=== PATIENT | male | born 1950 | race American Indian/Alaskan Native ===

== ENCOUNTER 2016-10-24 17:48 | Inpatient (IN) | payer SELFPAY ==
[2016-10-24] MEDS ORDERED: XOPENEX IH ONE ×2 (18:27→18:35)
[2016-10-24 20:04] LABS: Basophils % (Auto) 0.5 % (0.0-1.8); Eosinophils % (Auto) 0.1 % (0.0-4.3); Hemoglobin 14.2 gm/dl (11.8-15.2); Mean Corpuscular HGB Conc 32 % (32-34); Mean Corpuscular Hemoglobin 30 pg (28-32); Mean Corpuscular Volume 94 fl (84-94); Platelet Count 222 K/mm3 (140-440); Red Blood Count 4.69 M/mm3 (3.65-5.03); Red Cell Distribution Width 14.4 % (13.2-15.2); White Blood Count 7.1 K/mm3 (4.5-11.0)
[2016-10-24 20:33] LABS: Anion Gap 22 mmol/L; Blood Urea Nitrogen 18 mg/dL (9-20); Calcium 9.3 mg/dL (8.4-10.2); Carbon Dioxide 22 mmol/L (22-30); Chloride 92.8 mmol/L (98-107); Potassium 3.7 mmol/L (3.6-5.0); Sodium 133 mmol/L (137-145)
[2016-10-24 20:42] LABS: Glucose 617 mg/dL (75-100)
[2016-10-24] MEDS ORDERED: NACL 0.9% 1000 ML 1,000 ML IV ONE ×2 (21:06→23:45)
[2016-10-24] MEDS ORDERED: MAGNESIUM SULFATE 2GM/50ML 2 GM/50 ML BAG IV ONE (21:06)
[2016-10-24] MEDS ORDERED: PROVENTIL IH ONE (21:07)
[2016-10-24] MEDS ORDERED: D50W (25GM) IV PRN (23:48)
[2016-10-25] MEDS ORDERED: PROAIR IH PRN (00:15)
[2016-10-25] MEDS ORDERED: NORCO 5/325 PO PRN (00:15)
--- NOTE | 2016-10-25 00:18 | History and Physical Report ---
History of Present Illness Date of examination: 10/25/16 Chief complaint: Shortness of breath History of present illness: 65-year-old -[place] male with past medical history significant for diabetes mellitus type 2, asthma, hyperlipidemia presented to the emergency department complaining of shortness of breath for the last 4-5 days has also associated cough. Patient is asthmatic and has been admitted recently to the hospital. He ran out of his albuterol. Patient has been taking glipizide and metformin for his diabetes. Patient denied fever, chills but admitted for pleuritic chest pain. REVIEW OF SYSTEMS: GENERAL: no weight change, no fatigue, no fever HEAD: no head ache EYES: no blurry vision, no acute visual loss EARS: no hearing loss, no discharge, no earache NOSE: no stuffiness, no sneezing, no discharge MOUTH, THROAT AND NECK: no bleeding gums, no sore throat, no swollen neck CARDIAC: no palpitations, no dyspnea on exertion, no orthopnea, no PND, no edema , no chest pain RESPIRATORY: + shortness of breath, + wheeze, + cough, no sputum, no hemoptysis , no asthma GI: no decreased appetite, no nausea, no vomiting, no dysphagia, no diarrhea, no constipation, no abdominal pain URINARY: no change in frequency, no urgency, no polyuria, no hematuria, no incontinence MUSCULOSKELETAL: no muscle weakness, no pain, no joint stiffness NEUROLOGIC: no loss of sensation/numbness, no tingling, no tremors, no weakness/ paralysis HEMATOLOGIC: no anemia, no easy bruising SKIN: no rashes ENDOCRINE: no heat/cold intolerance, no polyuria, no polydipsia, no thyroid problems, no diabetes PSYCHIATRIC: no anxiety, no depression, no suicidal ideations Past History Past Medical History: diabetes, hyperlipidemia, other (astma) Past Surgical History: No surgical history Social history: full code. denies: smoking, alcohol abuse, prescription drug abuse, IV drug use Family history: other (astma mother) Medications and Allergies Allergies Allergy/AdvReac Type Severity Reaction Status Date / Time aspirin AdvReac Swelling Verified 11/27/15 12:56 Home Medications Medication Instructions Recorded Confirmed Last Taken Type Lisinopril [Zestril TAB] 10 mg PO DAILY 11/27/15 10/25/16 Unknown History Budesoni/Formoterol 80-4.5(Nf) 1 gm INHALATION BID #1 inha 01/06/16 10/25/16 Unknown Rx [Symbicort 80-4.5 (Nf)] Albuterol Sulfate [Albuterol 0.63% 0.63 mg IH TID PRN #1 box 01/25/16 10/25/16 Unknown Rx NEBS] Fluticasone/Salmeterol [Advair 1 each IH BID #1 blst.w.dev 01/25/16 10/25/16 Unknown Rx Diskus 250-50 mcg] glipiZIDE XL [Glucotrol Xl] 10 mg PO QDDIAB #30 tablet 01/25/16 10/25/16 Unknown Rx metFORMIN [Glucophage] 500 mg PO BID #120 tablet 01/25/16 10/25/16 Unknown Rx ALBUTEROL Inhaler [ProAir HFA 2 puff INHALATION Q4H PRN #1 inha 04/21/16 Unknown Rx Inhaler] Ibuprofen [Motrin 600 MG tab] 600 mg PO Q8H PRN #20 tablet 04/21/16 10/25/16 Unknown Rx methylPREDNISolone [Medrol] 4 mg PO DAILY #1 tab.ds.pk 04/21/16 10/25/16 Unknown Rx HYDROcodone/APAP 5-325 [[place] 1 each PO Q6HR PRN #14 tablet 07/08/16 10/25/16 Unknown Rx 5/325] Ibuprofen [Motrin 800 MG tab] 800 mg PO Q8HR PRN #20 tablet 07/08/16 10/25/16 Unknown Rx Active Meds: Active Medications Acetaminophen/Hydrocodone Bitart ([place] 5/325) 1 each PO Q6HR PRN PRN Reason: Pain Albuterol (Proair) 2 puff IH Q4H PRN PRN Reason: Dyspnea Dextrose (D50w (25gm)) 50 ml IV PRN PRN PRN Reason: Hypoglycemia Enoxaparin Sodium (Lovenox) 40 mg SUB-Q QDAY ALLEN Glipizide (Glucotrol Xl) 10 mg PO QDDIAB ALLEN Sodium Chloride (Nacl 0.9% 1000 Ml) 1,000 mls @ 250 mls/hr IV ONCE ONE Stop: 10/25/16 03:44 Insulin Aspart (Novolog) 0 units SUB-Q ACHS ALLEN PRN Reason: Protocol Lisinopril (Zestril) 10 mg PO DAILY [facility] Metformin HCl (Glucophage) 500 mg PO BID ALLEN Miscellaneous Medication (Albuterol Sulfate [Albuterol 0.63% Nebs]) 0.63 mg IH QID ALLEN Miscellaneous Medication (Budesoni/Formoterol 80-4.5(Nf)) 1 gm INHALATION BID ALLEN Exam - Physical Exam Narrative exam: Not in cardiopulmonary distress. The patient appeared well nourished and normally developed. Vital signs as documented. Head exam is unremarkable. No scleral icterus . Neck is without jugular venous distension, thyromegaly, or carotid bruits. Lungs significant for wheezing gone over the chest. Cardiac exam reveals regular rate and Rhythm. First and second heart sounds normal. No murmurs, rubs or gallops. Abdominal exam reveals normal bowel sounds, no masses, no organomegaly and no aortic enlargement. Extremities are nonedematous and both femoral and pedal pulses are normal. DRUG ABUSE TREATMENT SPECIALIST: Alert and oriented 3. No focal weakness. - Constitutional Vitals: Temp Pulse Resp BP Pulse Ox 98.2 F 88 22 140/77 97 10/24/16 22:10 10/24/16 22:53 10/24/16 22:53 10/24/16 22:10 10/24/16 22:11 Results - Labs CBC & Chem 7: 10/24/16 19:54 10/24/16 19:54 Labs: Laboratory Last Values WBC 7.1 K/mm3 (4.5-11.0) 10/24/16 19:54 RBC 4.69 M/mm3 (3.65-5.03) 10/24/16 19:54 Hgb 14.2 gm/dl (11.8-15.2) 10/24/16 19:54 Hct 44.0 % (35.5-45.6) 10/24/16 19:54 MCV 94 fl (84-94) 10/24/16 19:54 MCH 30 pg (28-32) 10/24/16 19:54 MCHC 32 % (32-34) 10/24/16 19:54 RDW 14.4 % (13.2-15.2) 10/24/16 19:54 Plt Count 222 K/mm3 (140-440) 10/24/16 19:54 Lymph % (Auto) 20.0 % (13.4-35.0) 10/24/16 19:54 [place] % (Auto) 10.4 % (0.0-7.3) H 10/24/16 19:54 Eos % (Auto) 0.1 % (0.0-4.3) 10/24/16 19:54 Baso % (Auto) 0.5 % (0.0-1.8) 10/24/16 19:54 Lymph # 1.4 K/mm3 (1.2-5.4) 10/24/16 19:54 [place] # 0.7 K/mm3 (0.0-0.8) 10/24/16 19:54 Eos # 0.0 K/mm3 (0.0-0.4) 10/24/16 19:54 Baso # 0.0 K/mm3 (0.0-0.1) 10/24/16 19:54 Seg Neutrophils % 69.0 % (40.0-70.0) 10/24/16 19:54 Seg Neutrophils # 4.9 K/mm3 (1.8-7.7) 10/24/16 19:54 D-Dimer 166.93 ng/mlDDU (0-234) 10/24/16 21:23 VBG pH 7.351 (7.320-7.420) 10/24/16 21:23 Sodium 133 mmol/L (137-145) L 10/24/16 19:54 Potassium 3.7 mmol/L (3.6-5.0) 10/24/16 19:54 Chloride 92.8 mmol/L (98-107) L 10/24/16 19:54 Carbon Dioxide 22 mmol/L (22-30) 10/24/16 19:54 Anion Gap 22 mmol/L 10/24/16 19:54 BUN 18 mg/dL (9-20) 10/24/16 19:54 Creatinine 0.9 mg/dL (0.8-1.5) 10/24/16 19:54 Estimated GFR > 60 ml/min 10/24/16 19:54 BUN/Creatinine Ratio 20.00 % 10/24/16 19:54 Glucose 617 mg/dL (75-100) H* 10/24/16 19:54 POC Glucose 398 (70-105) H 10/24/16 23:40 Calcium 9.3 mg/dL (8.4-10.2) 10/24/16 19:54 Troponin T < 0.010 ng/mL (0.00-0.029) 10/24/16 19:54 Assessment and Plan Assessment and plan: Acute asthmatic exacerbation Medication noncompliance Uncontrolled diabetes mellitus type 2 Hyperglycemia - Oxygen support, DuoNeb's, breathing treatment - I didn't give him solumedrol because of uncontrolled diabetes - Continue metformin and glipizide - Add sliding scale insulin - IVF Prophylaxis - lovenox DisPosition - To the medical floor Advance Directives: Yes VTE prophylaxis?: Chemical Plan of care discussed with patient/family: Yes
--- NOTE | 2016-10-25 00:26 | Emergency Department Report ---
HPI - General Chief Complaint: Adult Asthma Time Seen by Provider: 10/24/16 20:59 - HPI HPI: This is a 65-year-old -[place] Islander male presents to the emergency department with complaint of a 45 day history of shortness of breath, wheezing and a mixed dry and productive cough. Patient denies any chest pain, back pain , headache, nausea, vomiting or diaphoresis. The patient has a history of asthma. He has an inhaler that he just about yesterday. He has a breathing machine at home but does not have any of the medication for it. The patient has history of [id number] diabetes but admits that he is noncompliant with his to oral hyperglycemics. The patient also has a history of hypertension. He does not have a primary care doctor. He is not a tobacco smoker and denies any illicit drug use or abuse. He denies any history of RI, CVA, PE/DVT. No recent travel or sick contacts at home. ED Past Medical Hx - Past Medical History Previous Medical History?: Yes Hx Hypertension: Yes Hx Diabetes: Yes Hx Asthma: Yes - Surgical History Past Surgical History?: Yes Additional Surgical History: "sinus surgery" - Social History Smoking Status: Former Smoker - Medications Home Medications: Home Medications Medication Instructions Recorded Confirmed Last Taken Type Lisinopril [Zestril TAB] 10 mg PO DAILY 11/27/15 04/21/16 Unknown History Budesoni/Formoterol 80-4.5(Nf) 1 gm INHALATION BID #1 inha 01/06/16 04/21/16 Unknown Rx [Symbicort 80-4.5 (Nf)] Albuterol Sulfate [Albuterol 0.63% 0.63 mg IH TID PRN #1 box 01/25/16 04/21/16 Unknown Rx NEBS] Fluticasone/Salmeterol [Advair 1 each IH BID #1 blst.w.dev 01/25/16 04/21/16 Unknown Rx Diskus 250-50 mcg] glipiZIDE XL [Glucotrol Xl] 10 mg PO QDDIAB #30 tablet 01/25/16 04/21/16 Unknown Rx metFORMIN [Glucophage] 500 mg PO BID #120 tablet 01/25/16 04/21/16 Unknown Rx ALBUTEROL Inhaler [ProAir HFA 2 puff INHALATION Q4H PRN #1 inha 04/21/16 Unknown Rx Inhaler] Ibuprofen [Motrin 600 MG tab] 600 mg PO Q8H PRN #20 tablet 04/21/16 Unknown Rx methylPREDNISolone [Medrol] 4 mg PO DAILY #1 tab.ds.pk 04/21/16 Unknown Rx HYDROcodone/APAP 5-325 [[place] 1 each PO Q6HR PRN #14 tablet 07/08/16 Unknown Rx 5/325] Ibuprofen [Motrin 800 MG tab] 800 mg PO Q8HR PRN #20 tablet 07/08/16 Unknown Rx ED Review of Systems ROS: Stated complaint: ASTHMA Other details as noted in HPI Comment: All other systems reviewed and negative Constitutional: denies: chills, fever Eyes: denies: eye pain, eye discharge, vision change ENT: denies: ear pain, throat pain Respiratory: cough, shortness of breath, wheezing Cardiovascular: denies: chest pain, palpitations Gastrointestinal: denies: abdominal pain, nausea, diarrhea Genitourinary: denies: urgency, dysuria Musculoskeletal: denies: back pain, joint swelling, arthralgia Skin: denies: rash, lesions Neurological: denies: headache, weakness, paresthesias Physical Exam - Physical Exam Vital Signs: Vital Signs 10/24/16 10/24/16 10/24/16 17:57 18:40 18:56 Temperature 98.4 F Pulse Rate 98 H Pulse Rate [ 89 95 H Anterior Bilateral Upper Lobe] Respiratory 28 H Rate Respiratory 18 18 Rate [Anterior Bilateral Upper Lobe] Blood Pressure 131/72 Blood Pressure [Left] O2 Sat by Pulse 93 Oximetry 10/24/16 10/24/16 10/24/16 22:10 22:11 22:23 Temperature 98.2 F Pulse Rate 78 Pulse Rate [ 84 Anterior Bilateral Upper Lobe] Respiratory 16 16 Rate Respiratory 22 Rate [Anterior Bilateral Upper Lobe] Blood Pressure Blood Pressure 140/77 [Left] O2 Sat by Pulse 97 97 Oximetry 10/24/16 22:53 Temperature Pulse Rate Pulse Rate [ 88 Anterior Bilateral Upper Lobe] Respiratory Rate Respiratory 22 Rate [Anterior Bilateral Upper Lobe] Blood Pressure Blood Pressure [Left] O2 Sat by Pulse Oximetry Physical Exam: GENERAL: The patient is well-developed well-nourished. HEENT: Normocephalic. Atraumatic. Extraocular motions are intact. Patient has moist mucous membranes. Pupils equal reactive to light bilaterally. NECK: Supple. Trachea is midline. CHEST/LUNGS: Moderate to severe wheezing throughout the chest. There is tachypnea but no accessory muscle use. There is a dry cough heard during examination. There is no respiratory distress noted. HEART/CARDIOVASCULAR: Regular. There is no tachycardia. There is no gallop rub or murmur. ABDOMEN: Abdomen is soft, nontender. Patient has normal bowel sounds. There is no abdominal distention. SKIN: Skin is warm but dry. NEURO: The patient is awake, alert, and oriented. The patient is cooperative. The patient has no focal neurologic deficits. The patient has normal speech. MUSCULOSKELETAL: There is no tenderness or deformity. There is no limitation range of motion. There is no evidence of acute injury. ED Course Vital Signs 10/24/16 10/24/16 10/24/16 17:57 18:40 18:56 Temperature 98.4 F Pulse Rate 98 H Pulse Rate [ 89 95 H Anterior Bilateral Upper Lobe] Respiratory 28 H Rate Respiratory 18 18 Rate [Anterior Bilateral Upper Lobe] Blood Pressure 131/72 Blood Pressure [Left] O2 Sat by Pulse 93 Oximetry 10/24/16 10/24/16 10/24/16 22:10 22:11 22:23 Temperature 98.2 F Pulse Rate 78 Pulse Rate [ 84 Anterior Bilateral Upper Lobe] Respiratory 16 16 Rate Respiratory 22 Rate [Anterior Bilateral Upper Lobe] Blood Pressure Blood Pressure 140/77 [Left] O2 Sat by Pulse 97 97 Oximetry 10/24/16 22:53 Temperature Pulse Rate Pulse Rate [ 88 Anterior Bilateral Upper Lobe] Respiratory Rate Respiratory 22 Rate [Anterior Bilateral Upper Lobe] Blood Pressure Blood Pressure [Left] O2 Sat by Pulse Oximetry ED Medical Decision Making - Lab Data Result diagrams: 10/24/16 19:54 10/24/16 19:54 - EKG Data -: EKG Interpreted by Me EKG shows normal: sinus rhythm, axis, intervals, QRS complexes (Q waves to the septal leads), ST-T waves Rate: normal - EKG Data When compared to previous EKG there are: previous EKG unavailable Interpretation: other (Q waves to the septal leads) - Radiology Data Radiology results: image reviewed interpreted by me: Chest x-ray did not show any acute process. Heart is normal shape and size. No effusions. No pneumothorax. No signs of pneumonia seen. - Medical Decision Making 65-year-old male presents to the emergency department with complaint of a 4-5 day history of some shortness of breath, wheezing and cough. Patient doesn't history of asthma. He has moderate to severe wheezing throughout the chest and some tachypnea and no accessory muscle use. There is some mild hypoxia when he first arrived. However the patient received 2 doses of Xopenex and there was no longer any hypoxia. Patient continues to have bronchospasm. He was then given 3 more albuterol and one Atrovent for breathing treatments. Patient's labs came back showing some severe hyperglycemia with a blood sugar of 617. However there is no elevation in the anion gap and there is no acidosis and the patient does not appear to be in DKA. He was given IV fluid resuscitation and IV insulin. Patient's labs also show a negative troponin and a negative d- dimer. So far the blood sugars come down to about 400. However due to the hyperglycemia, the patient was not given any Solu-Medrol as I do not worsen his hyperglycemia at this time. However the patient is received multiple treatments for his bronchospasm and still continues to have tightness and wheezing. For this reason, as well as the hyperglycemia, the patient will be admitted to hospital for further evaluation and treatment and has been accepted for admission by the hospitalist, Dr. Vázquez. - Differential Diagnosis asthma, pneumonia, CHF, RI, PE Critical Care Time: No Critical care attestation.: If time is entered above; I have spent that time in minutes in the direct care of this critically ill patient, excluding procedure time. ED Disposition Clinical Impression: Asthma exacerbation, Hyperglycemia, Noncompliance with medication regimen, Bronchospasm Uncontrolled diabetes mellitus Qualifiers: Diabetes mellitus type: type 2 Diabetes mellitus complication status: with hyperglycemia Diabetes mellitus assisted insulin use: without watermelon inspector use Qualified Code(s): E11.65 - Type 2 diabetes mellitus with hyperglycemia Disposition: OP ADMITTED IP TO THIS HOSP Is pt being admited?: Yes Condition: Stable Referrals: PRIMARY CARE, [Primary Care Provider] - 3-5 Days Time of Disposition: 00:27
[2016-10-25] MEDS ORDERED: PROVENTIL IH PRN (01:12)
[2016-10-25] MEDS: BROVANA NEBU IH SCH ×2 (07:46→21:14)
[2016-10-25] MEDS: PULMICORT IH SCH ×2 (07:46→21:11)
[2016-10-25] MEDS: PROVENTIL IH SCH ×4 (07:46→21:10)
[2016-10-25] MEDS: GLUCOTROL XL PO SCH (08:20)
[2016-10-25] MEDS: NOVOLOG SUB-Q SCH ×4 (08:34→22:25)
[2016-10-25] MEDS ORDERED: FORMOTEROL INHALATION SCH (10:00)
[2016-10-25] MEDS ORDERED: BUDESONIDE INHALATION SCH (10:00)
[2016-10-25] MEDS: ZESTRIL PO SCH (10:00)
[2016-10-25] MEDS ORDERED: GLUCOPHAGE PO SCH (10:00)
[2016-10-25] MEDS ORDERED: NON-FORMULARY (Albuterol Sulfate [Albuterol 0.63% Nebs] 0.63 MG) IH SCH (10:00)
--- NOTE | 2016-10-25 10:26 | XRay Report ---
Single view chest: Compared to 07/07/16. History: Shortness of breath. Findings: Normal cardiomediastinal silhouette. Trachea is midline. No consolidation, pneumothorax or pleural effusion. Impression: No acute cardiopulmonary findings.
[2016-10-25] MEDS: LOVENOX SUB-Q SCH (11:09)
--- NOTE | 2016-10-25 15:50 | Progress Note ---
Assessment and Plan Assessment and plan: 65-year-old -[place] male with past medical history significant for diabetes mellitus type 2, asthma, hyperlipidemia presented to the emergency department complaining of shortness of breath for the last 4-5 days has also associated cough. Acute asthmatic exacerbation - Oxygen support, DuoNeb's, breathing treatment - start low dose of po steroid, as BG improved now - will add abx Uncontrolled diabetes mellitus type 2 withHyperglycemia - Continue metformin and glipizide - Add sliding scale insulin - IVF Mild hyponatremia likley due to dehydration, cont IV fluid Prophylaxis - lovenox DisPosition - home when medically stable History Interval history: Pt seen and examined, med list reviewed feels better but still has significant wheezing and cough Hospitalist Physical - Constitutional Vitals: Temp Pulse Resp BP Pulse Ox 97.6 F 73 18 108/63 96 10/25/16 15:15 10/25/16 15:15 10/25/16 15:15 10/25/16 15:15 10/25/16 07:20 General appearance: Present: no acute distress, well-nourished - EENT Eyes: Present: PERRL, EOM intact ENT: hearing intact, clear oral mucosa, dentition normal - Neck Neck: Present: supple, normal ROM - Respiratory Respiratory effort: normal Respiratory: bilateral: wheezing - Cardiovascular Rhythm: regular Heart Sounds: Present: S1 & S2 - Extremities Extremities: no ischemia, No edema Peripheral Pulses: within normal limits - Abdominal General gastrointestinal: soft, non-tender, non-distended, normal bowel sounds - Integumentary Integumentary: Present: warm, dry - Psychiatric Psychiatric: appropriate mood/affect, intact judgment & insight - Neurologic Neurologic: no focal deficits Results - Labs CBC & Chem 7: 10/24/16 19:54 10/24/16 19:54 Labs: Laboratory Last Values WBC 7.1 K/mm3 (4.5-11.0) 10/24/16 19:54 RBC 4.69 M/mm3 (3.65-5.03) 10/24/16 19:54 Hgb 14.2 gm/dl (11.8-15.2) 10/24/16 19:54 Hct 44.0 % (35.5-45.6) 10/24/16 19:54 MCV 94 fl (84-94) 10/24/16 19:54 MCH 30 pg (28-32) 10/24/16 19:54 MCHC 32 % (32-34) 10/24/16 19:54 RDW 14.4 % (13.2-15.2) 10/24/16 19:54 Plt Count 222 K/mm3 (140-440) 10/24/16 19:54 Lymph % (Auto) 20.0 % (13.4-35.0) 10/24/16 19:54 [place] % (Auto) 10.4 % (0.0-7.3) H 10/24/16 19:54 Eos % (Auto) 0.1 % (0.0-4.3) 10/24/16 19:54 Baso % (Auto) 0.5 % (0.0-1.8) 10/24/16 19:54 Lymph # 1.4 K/mm3 (1.2-5.4) 10/24/16 19:54 [place] # 0.7 K/mm3 (0.0-0.8) 10/24/16 19:54 Eos # 0.0 K/mm3 (0.0-0.4) 10/24/16 19:54 Baso # 0.0 K/mm3 (0.0-0.1) 10/24/16 19:54 Seg Neutrophils % 69.0 % (40.0-70.0) 10/24/16 19:54 Seg Neutrophils # 4.9 K/mm3 (1.8-7.7) 10/24/16 19:54 D-Dimer 166.93 ng/mlDDU (0-234) 10/24/16 21:23 VBG pH 7.351 (7.320-7.420) 10/24/16 21:23 Sodium 133 mmol/L (137-145) L 10/24/16 19:54 Potassium 3.7 mmol/L (3.6-5.0) 10/24/16 19:54 Chloride 92.8 mmol/L (98-107) L 10/24/16 19:54 Carbon Dioxide 22 mmol/L (22-30) 10/24/16 19:54 Anion Gap 22 mmol/L 10/24/16 19:54 BUN 18 mg/dL (9-20) 10/24/16 19:54 Creatinine 0.9 mg/dL (0.8-1.5) 10/24/16 19:54 Estimated GFR > 60 ml/min 10/24/16 19:54 BUN/Creatinine Ratio 20.00 % 10/24/16 19:54 Glucose 617 mg/dL (75-100) H* 10/24/16 19:54 POC Glucose 240 (70-105) H 10/25/16 11:04 Calcium 9.3 mg/dL (8.4-10.2) 10/24/16 19:54 Troponin T < 0.010 ng/mL (0.00-0.029) 10/24/16 19:54
[2016-10-25] MEDS ORDERED: DELTASONE PO SCH (16:00)
[2016-10-25] MEDS: LEVAQUIN PO SCH (17:16)
[2016-10-25] MEDS: GLUCOPHAGE PO SCH (17:16)
[2016-10-26 06:23] LABS: Anion Gap 18 mmol/L; BUN/Creatinine Ratio 17.14; Blood Urea Nitrogen 12 mg/dL (9-20); Calcium 8.7 mg/dL (8.4-10.2); Carbon Dioxide 22 mmol/L (22-30); Chloride 99.6 mmol/L (98-107); Glucose 302 mg/dL (75-100); Potassium 3.8 mmol/L (3.6-5.0); Sodium 136 mmol/L (137-145)
[2016-10-26] MEDS: PROVENTIL IH SCH ×2 (07:28→19:22)
[2016-10-26] MEDS: PULMICORT IH SCH ×2 (07:28→19:22)
[2016-10-26] MEDS: BROVANA NEBU IH SCH ×2 (07:28→19:22)
[2016-10-26] MEDS: NOVOLOG SUB-Q SCH ×4 (08:02→22:25)
[2016-10-26] MEDS: GLUCOPHAGE PO SCH ×2 (08:02→16:39)
[2016-10-26] MEDS: GLUCOTROL XL PO SCH (08:02)
[2016-10-26] MEDS: LOVENOX SUB-Q SCH (10:30)
[2016-10-26] MEDS: DELTASONE PO SCH (10:30)
[2016-10-26] MEDS: ZESTRIL PO SCH (10:35)
[2016-10-26] MEDS ORDERED: PROVENTIL IH SCH (14:00)
--- NOTE | 2016-10-26 15:58 | Progress Note ---
Assessment and Plan Assessment and plan: 65-year-old -[place] male with past medical history significant for diabetes mellitus type 2, asthma, hyperlipidemia presented to the emergency department complaining of shortness of breath for the last 4-5 days has also associated cough. BG was 617 on admission Acute asthmatic exacerbation - Oxygen support, DuoNeb's, breathing treatment - cont low dose of po steroid, reduce the dose today - cont abx Uncontrolled diabetes mellitus type 2 with Hyperglycemia - increase metformin and cont glipizide - Add lentus 5 unit at bedtime, cont sliding scale insulin - IVF, check a1c Mild hyponatremia likley due to dehydration, cont IV fluid Prophylaxis - lovenox DisPosition - home when medically stable History Interval history: Pt seen and examined, med list reviewed feels better but still has significant wheezing and cough BG remained above 300 Hospitalist Physical - Physical exam Narrative exam: General appearance: Present: no acute distress, well-nourished - EENT Eyes: Present: PERRL, EOM intact ENT: hearing intact, clear oral mucosa, dentition normal - Neck Neck: Present: supple, normal ROM - Respiratory Respiratory effort: normal Respiratory: bilateral: wheezing - Cardiovascular Rhythm: regular Heart Sounds: Present: S1 & S2 - Extremities Extremities: no ischemia, No edema Peripheral Pulses: within normal limits - Abdominal General gastrointestinal: soft, non-tender, non-distended, normal bowel sounds - Integumentary Integumentary: Present: warm, dry - Psychiatric Psychiatric: appropriate mood/affect, intact judgment & insight - Neurologic Neurologic: no focal deficits - Constitutional Vitals: Temp Pulse Resp BP Pulse Ox 97.6 F 68 20 153/79 98 10/26/16 08:10 10/26/16 08:10 10/26/16 08:10 10/26/16 10:35 10/26/16 08:48 General appearance: Present: no acute distress, well-nourished - Respiratory Respiratory effort: other Results - Labs CBC & Chem 7: 10/24/16 19:54 10/26/16 04:58 Labs: Laboratory Last Values WBC 7.1 K/mm3 (4.5-11.0) 10/24/16 19:54 RBC 4.69 M/mm3 (3.65-5.03) 10/24/16 19:54 Hgb 14.2 gm/dl (11.8-15.2) 10/24/16 19:54 Hct 44.0 % (35.5-45.6) 10/24/16 19:54 MCV 94 fl (84-94) 10/24/16 19:54 MCH 30 pg (28-32) 10/24/16 19:54 MCHC 32 % (32-34) 10/24/16 19:54 RDW 14.4 % (13.2-15.2) 10/24/16 19:54 Plt Count 222 K/mm3 (140-440) 10/24/16 19:54 Lymph % (Auto) 20.0 % (13.4-35.0) 10/24/16 19:54 [place] % (Auto) 10.4 % (0.0-7.3) H 10/24/16 19:54 Eos % (Auto) 0.1 % (0.0-4.3) 10/24/16 19:54 Baso % (Auto) 0.5 % (0.0-1.8) 10/24/16 19:54 Lymph # 1.4 K/mm3 (1.2-5.4) 10/24/16 19:54 [place] # 0.7 K/mm3 (0.0-0.8) 10/24/16 19:54 Eos # 0.0 K/mm3 (0.0-0.4) 10/24/16 19:54 Baso # 0.0 K/mm3 (0.0-0.1) 10/24/16 19:54 Seg Neutrophils % 69.0 % (40.0-70.0) 10/24/16 19:54 Seg Neutrophils # 4.9 K/mm3 (1.8-7.7) 10/24/16 19:54 D-Dimer 166.93 ng/mlDDU (0-234) 10/24/16 21:23 VBG pH 7.351 (7.320-7.420) 10/24/16 21:23 Sodium 136 mmol/L (137-145) L 10/26/16 04:58 Potassium 3.8 mmol/L (3.6-5.0) 10/26/16 04:58 Chloride 99.6 mmol/L (98-107) 10/26/16 04:58 Carbon Dioxide 22 mmol/L (22-30) 10/26/16 04:58 Anion Gap 18 mmol/L 10/26/16 04:58 BUN 12 mg/dL (9-20) 10/26/16 04:58 Creatinine 0.7 mg/dL (0.8-1.5) L 10/26/16 04:58 Estimated GFR > 60 ml/min 10/26/16 04:58 BUN/Creatinine Ratio 17.14 % 10/26/16 04:58 Glucose 302 mg/dL (75-100) H 10/26/16 04:58 POC Glucose 317 (70-105) H 10/26/16 11:36 Calcium 8.7 mg/dL (8.4-10.2) 10/26/16 04:58 Troponin T < 0.010 ng/mL (0.00-0.029) 10/24/16 19:54
[2016-10-26] MEDS: LEVAQUIN PO SCH (16:39)
[2016-10-26] MEDS ORDERED: LEVEMIR SUB-Q SCH (22:00)
[2016-10-27] MEDS: PROVENTIL IH SCH ×4 (01:17→19:10)
--- NOTE | 2016-10-27 08:08 | Discharge Summary ---
Providers - Providers Date of Admission: 10/25/16 00:10 Date of discharge: 10/27/16 Attending physician: SABAS KAUR Primary care physician: TREVOR PABON MD Hospitalization Condition: Stable Hospital course: 65-year-old -U[place]and[place] male with past medical history significant for diabetes mellitus type 2, asthma, hyperlipidemia presented to the emergency department complaining of shortness of breath for the last 4-5 days has also associated cough. BG was 617 on admission. Discharge Diagnosis and management per problem list: Acute asthmatic exacerbation, resolved - s/p Oxygen support, DuoNeb's, breathing treatment, low dose steroid, ABX - CXR showed no acute infiltrates Uncontrolled diabetes mellitus type 2 with Hyperglycemia - increased the dose of metformin and cont glipizide - Added detemir 10 unit BID, Mild hyponatremia likley due to dehydration, improved with IV fluid Noncompliance, counselled Disposition: DISCHARGED TO HOME OR SELFCARE Time spent for discharge: 35 minutes Core Measure Documentation - Palliative Care Palliative Care/ Comfort Measures: Not Applicable - Core Measures Any of the following diagnoses?: none Exam - Physical Exam Narrative exam: General appearance: Present: no acute distress, well-nourished - EENT Eyes: Present: PERRL, EOM intact ENT: hearing intact, clear oral mucosa, dentition normal - Neck Neck: Present: supple, normal ROM - Respiratory Respiratory effort: normal Respiratory: bilateral: few wheezes - Cardiovascular Rhythm: regular Heart Sounds: Present: S1 & S2 - Extremities Extremities: no ischemia, No edema Peripheral Pulses: within normal limits - Abdominal General gastrointestinal: soft, non-tender, non-distended, normal bowel sounds - Integumentary Integumentary: Present: warm, dry - Psychiatric Psychiatric: appropriate mood/affect, intact judgment & insight - Neurologic Neurologic: no focal deficits - Constitutional Vitals: Temp Pulse Resp BP Pulse Ox 98.5 F 80 22 124/70 100 10/27/16 00:00 10/27/16 01:26 10/27/16 01:26 10/27/16 00:00 10/27/16 00:00 Plan Activity: advance as tolerated Weight Bearing Status: Weight Bear as Tolerated Diet: diabetic Follow up with: PRIMARY CARE, [Primary Care Provider] - 3-5 Days Prescriptions: ALBUTEROL Inhaler [ProAir HFA Inhaler] 2 puff INHALATION Q4H PRN #1 inha PRN Reason: Dyspnea Albuterol Sulfate [Albuterol 0.63% NEBS] 0.63 mg IH TID PRN #1 box PRN Reason: Wheezing Budesoni/Formoterol 80-4.5(Nf) [Symbicort 80-4.5 (Nf)] 1 gm INHALATION BID #1 inha glipiZIDE XL [Glucotrol Xl] 10 mg PO QDDIAB #30 tablet Insulin Detemir [Levemir] 10 units SUB-Q BID 30 Days Lisinopril [Zestril TAB] 10 mg PO DAILY #30 tablet metFORMIN [Glucophage] 1,000 mg PO BID #120 tablet methylPREDNISolone [Medrol Dose Lizandro] 4 mg PO DAILY #1 tab.ds.pk
[2016-10-27] MEDS: NOVOLOG SUB-Q SCH ×4 (09:00→22:06)
[2016-10-27] MEDS: GLUCOPHAGE PO SCH ×2 (09:01→16:43)
[2016-10-27] MEDS: GLUCOTROL XL PO SCH (09:01)
--- NOTE | 2016-10-27 09:03 | Admit Criteria Form ---
Admission Criteria Documentation: ASTHMA Clinical Indications for Admission to Inpatient Care (Place 'X' for any and all applicable criteria): Admission is indicated for ANY ONE of the following (1)(2)(3)(4)(5): [ ]I. Absent or markedly diminished breath sounds (silent chest) [ ]II. Oxygen saturation < 92% [ ]III. PaCO2 = / > 42 mm Hg (5.6 kPa) [ ]IV. Peak expiratory flow rate < 40% of predicted or personal best after treatment. [ ]V. Peak expiratory flow rate < 33% of predicted or personal before after treatment [ ]. Change in mental status [ ]VII. Ventilatory support required [ ]VIII. PaO2 < 60 mm Hg (8.0 kPa) [ ]IX. Cyanosis [ ]X. Cardiac dysrhythmia (e.g., bradycardia) [ ]XI. Hemodynamic instability [ ]XII. Radiographic evidence of complication requiring inpatient treatment (e.g., pneumonia, pneumothorax) [X]XIII. Inpatient admission required rather than observation care (also use Asthma: Observation Care guideline as appropriate) because of ANY ONE of the following: [X]a) Respiratory finding that is severe or persistent (eg, dyspnea, tachypnea, accessory muscle use) [ ]b) Airflow measurements less than 60% of predicted or personal best that persist (e.g., over 24 hours) or worsen despite treatments [ ]c) Supplemental oxygen or respiratory treatments for over 24 hours that are performable only in acute inpatient setting [X]d) Other condition, treatment or monitoring requiring inpatient admission. Extended stay beyond goal length of stay may be needed for (26)(27)(28): [ ]a) Severe respiratory failure (23) (29) (30) [ ]b) Secondary causes and complications (25) [ ]c) Status asthmaticus [ ]d) Chronic obstructive asthma [ ]e) Older patients (29) [ ]f) Slow resolution [ ]g) Clinically significant exacerbation of comorbidities (eg, hi. heart failure, atrial fibrillation) The original [email or web address] content created by [employer] has been revised. The portions of the content which have been revised are identified through the use of italic text or in bold, and [facility] has neither reviewed nor approved the modified material. All other unmodified content is copyright [facility] Please see references footnoted in the original [facility] edition 2016 Admission Criteria Met: Yes
[2016-10-27] MEDS: PULMICORT IH SCH ×2 (09:26→19:10)
[2016-10-27] MEDS: BROVANA NEBU IH SCH ×2 (09:26→19:10)
[2016-10-27] MEDS: ZESTRIL PO SCH (11:33)
[2016-10-27] MEDS: DELTASONE PO SCH (11:34)
[2016-10-27] MEDS: LOVENOX SUB-Q SCH (11:34)
[2016-10-27] MEDS: LEVEMIR SUB-Q SCH ×2 (11:35→22:06)
[2016-10-27] MEDS: LEVAQUIN PO SCH (16:37)
--- NOTE | 2016-10-28 00:09 | Progress Note ---
Assessment and Plan Assessment and plan: 65-year-old -Serbian male with past medical history significant for diabetes mellitus type 2, asthma, hyperlipidemia presented to the emergency department complaining of shortness of breath for the last 4-5 days has also associated cough. BG was 617 on admission Acute asthmatic exacerbation - Oxygen support, DuoNeb's, breathing treatment - stop steroid due to high BG - cont abx Uncontrolled diabetes mellitus type 2 with Hyperglycemia - increase metformin and cont glipizide - Add detemir 15 unit BID, cont sliding scale insulin - cont IVF Mild hyponatremia likley due to dehydration, resolved with IV fluid Prophylaxis - lovenox DisPosition - home when medically stable History Interval history: Pt seen and examined, med list reviewed feels better but still has significant wheezing and cough BG remained above 300 Hospitalist Physical - Physical exam Narrative exam: General appearance: Present: no acute distress, well-nourished - EENT Eyes: Present: PERRL, EOM intact ENT: hearing intact, clear oral mucosa, dentition normal - Neck Neck: Present: supple, normal ROM - Respiratory Respiratory effort: normal Respiratory: bilateral: few wheezes - Cardiovascular Rhythm: regular Heart Sounds: Present: S1 & S2 - Extremities Extremities: no ischemia, No edema Peripheral Pulses: within normal limits - Abdominal General gastrointestinal: soft, non-tender, non-distended, normal bowel sounds - Integumentary Integumentary: Present: warm, dry - Psychiatric Psychiatric: appropriate mood/affect, intact judgment & insight - Neurologic Neurologic: no focal deficits - Constitutional Vitals: Temp Pulse Resp BP Pulse Ox 98.3 F 85 19 122/68 100 10/27/16 16:22 10/27/16 19:21 10/27/16 19:21 10/27/16 16:22 10/27/16 19:11 General appearance: Present: no acute distress, well-nourished Results - Labs CBC & Chem 7: 10/24/16 19:54 10/26/16 04:58 Labs: Laboratory Last Values WBC 7.1 K/mm3 (4.5-11.0) 10/24/16 19:54 RBC 4.69 M/mm3 (3.65-5.03) 10/24/16 19:54 Hgb 14.2 gm/dl (11.8-15.2) 10/24/16 19:54 Hct 44.0 % (35.5-45.6) 10/24/16 19:54 MCV 94 fl (84-94) 10/24/16 19:54 MCH 30 pg (28-32) 10/24/16 19:54 MCHC 32 % (32-34) 10/24/16 19:54 RDW 14.4 % (13.2-15.2) 10/24/16 19:54 Plt Count 222 K/mm3 (140-440) 10/24/16 19:54 Lymph % (Auto) 20.0 % (13.4-35.0) 10/24/16 19:54 [place] % (Auto) 10.4 % (0.0-7.3) H 10/24/16 19:54 Eos % (Auto) 0.1 % (0.0-4.3) 10/24/16 19:54 Baso % (Auto) 0.5 % (0.0-1.8) 10/24/16 19:54 Lymph # 1.4 K/mm3 (1.2-5.4) 10/24/16 19:54 [place] # 0.7 K/mm3 (0.0-0.8) 10/24/16 19:54 Eos # 0.0 K/mm3 (0.0-0.4) 10/24/16 19:54 Baso # 0.0 K/mm3 (0.0-0.1) 10/24/16 19:54 Seg Neutrophils % 69.0 % (40.0-70.0) 10/24/16 19:54 Seg Neutrophils # 4.9 K/mm3 (1.8-7.7) 10/24/16 19:54 D-Dimer 166.93 ng/mlDDU (0-234) 10/24/16 21:23 VBG pH 7.351 (7.320-7.420) 10/24/16 21:23 Sodium 136 mmol/L (137-145) L 10/26/16 04:58 Potassium 3.8 mmol/L (3.6-5.0) 10/26/16 04:58 Chloride 99.6 mmol/L (98-107) 10/26/16 04:58 Carbon Dioxide 22 mmol/L (22-30) 10/26/16 04:58 Anion Gap 18 mmol/L 10/26/16 04:58 BUN 12 mg/dL (9-20) 10/26/16 04:58 Creatinine 0.7 mg/dL (0.8-1.5) L 10/26/16 04:58 Estimated GFR > 60 ml/min 10/26/16 04:58 BUN/Creatinine Ratio 17.14 % 10/26/16 04:58 Glucose 302 mg/dL (75-100) H 10/26/16 04:58 POC Glucose 419 (70-105) H 10/27/16 16:37 Hemoglobin A1c 29.8 % (4-6) H 10/26/16 17:05 Calcium 8.7 mg/dL (8.4-10.2) 10/26/16 04:58 Troponin T < 0.010 ng/mL (0.00-0.029) 10/24/16 19:54
[2016-10-28] MEDS: PROVENTIL IH SCH ×3 (02:37→13:55)
[2016-10-28] MEDS: PULMICORT IH SCH (08:13)
[2016-10-28] MEDS: BROVANA NEBU IH SCH (08:13)
[2016-10-28] MEDS: NOVOLOG SUB-Q SCH ×2 (08:52→12:40)
[2016-10-28] MEDS: GLUCOPHAGE PO SCH ×2 (08:54→17:16)
[2016-10-28] MEDS: GLUCOTROL XL PO SCH (08:54)
[2016-10-28] MEDS ORDERED: LEVEMIR SUB-Q SCH ×2 (10:00→22:00)
[2016-10-28] MEDS: ZESTRIL PO SCH (12:27)
[2016-10-28] MEDS: LOVENOX SUB-Q SCH (12:27)
[2016-10-28] MEDS ORDERED: D50W (25GM) IV PRN (14:06)
--- NOTE | 2016-10-28 14:10 | Progress Note ---
Assessment and Plan Assessment and plan: Patient is a 65-year-old man with past medical history significant for diabetes mellitus type 2, asthma and hyperlipidemia who presented to the emergency department complaining of shortness of breath for the last 4-5 days, associated cough. BG was 617 on admission Acute asthmatic exacerbation - Oxygen support, DuoNeb's, breathing treatment - stop steroid due to high BG - cont abx Uncontrolled diabetes mellitus type 2 with Hyperglycemia - increase metformin and because it is not working - Start 70/30 due to cost and no insurance, cont sliding scale insulin - cont IVF Mild hyponatremia likley due to dehydration, resolved with IV fluid Prophylaxis - lovenox DisPosition - home when blood sugar is stable History Interval history: Patient seen and examined. Follow up on uncontrolled diabetes mellitus, still with blood sugars over 300. He also has complaint of cough and wheezing. Duonebs helps and he wants this medication for home; he has nebulizer and albuterol doesn't work but the DuoNeb does. Overnight uneventful. No cp, n/v or severe headaches. Imaging, old records, testing, labs, nursing notes reviewed. Hospitalist Physical - Physical exam Narrative exam: GEN: WDWN, NAD, AWAKE, ALERT, ORIENTATED 3 HEENT: NCAT, PERRL, EOMI, OP CLEAR NECK: SUPPLE, NO THYROMEGALY, NO JVD, NO LAD CVS: RRR, NORMAL S1S2 LUNGS/CHEST: Discharge wheezing, NORMAL CHEST EXPANSION B, GOOD AIR ENTRY B ABD: SOFT NTND, GBS, NO REBOUND OR GUARDING EXT/SKIN: NO SIGNIFICANT EDEMA OR RASH MSK: FROM X 4 EXTREMITIES NEURO: CN 2-12 GROSSLY INTACT, NO new FOCAL DEFICITS PSY: CALM - Constitutional Vitals: Temp Pulse Resp BP Pulse Ox 98.0 F 90 16 112/68 99 10/28/16 08:00 10/28/16 13:56 10/28/16 13:56 10/28/16 12:27 10/28/16 08:15 General appearance: Present: no acute distress, well-nourished Results - Labs CBC & Chem 7: 10/24/16 19:54 10/26/16 04:58 Labs: Laboratory Last Values WBC 7.1 K/mm3 (4.5-11.0) 10/24/16 19:54 RBC 4.69 M/mm3 (3.65-5.03) 10/24/16 19:54 Hgb 14.2 gm/dl (11.8-15.2) 10/24/16 19:54 Hct 44.0 % (35.5-45.6) 10/24/16 19:54 MCV 94 fl (84-94) 10/24/16 19:54 MCH 30 pg (28-32) 10/24/16 19:54 MCHC 32 % (32-34) 10/24/16 19:54 RDW 14.4 % (13.2-15.2) 10/24/16 19:54 Plt Count 222 K/mm3 (140-440) 10/24/16 19:54 Lymph % (Auto) 20.0 % (13.4-35.0) 10/24/16 19:54 [place] % (Auto) 10.4 % (0.0-7.3) H 10/24/16 19:54 Eos % (Auto) 0.1 % (0.0-4.3) 10/24/16 19:54 Baso % (Auto) 0.5 % (0.0-1.8) 10/24/16 19:54 Lymph # 1.4 K/mm3 (1.2-5.4) 10/24/16 19:54 [place] # 0.7 K/mm3 (0.0-0.8) 10/24/16 19:54 Eos # 0.0 K/mm3 (0.0-0.4) 10/24/16 19:54 Baso # 0.0 K/mm3 (0.0-0.1) 10/24/16 19:54 Seg Neutrophils % 69.0 % (40.0-70.0) 10/24/16 19:54 Seg Neutrophils # 4.9 K/mm3 (1.8-7.7) 10/24/16 19:54 D-Dimer 166.93 ng/mlDDU (0-234) 10/24/16 21:23 VBG pH 7.351 (7.320-7.420) 10/24/16 21:23 Sodium 136 mmol/L (137-145) L 10/26/16 04:58 Potassium 3.8 mmol/L (3.6-5.0) 10/26/16 04:58 Chloride 99.6 mmol/L (98-107) 10/26/16 04:58 Carbon Dioxide 22 mmol/L (22-30) 10/26/16 04:58 Anion Gap 18 mmol/L 10/26/16 04:58 BUN 12 mg/dL (9-20) 10/26/16 04:58 Creatinine 0.7 mg/dL (0.8-1.5) L 10/26/16 04:58 Estimated GFR > 60 ml/min 10/26/16 04:58 BUN/Creatinine Ratio 17.14 % 10/26/16 04:58 Glucose 302 mg/dL (75-100) H 10/26/16 04:58 POC Glucose 323 (70-105) H 10/28/16 11:26 Hemoglobin A1c 29.8 % (4-6) H 10/26/16 17:05 Calcium 8.7 mg/dL (8.4-10.2) 10/26/16 04:58 Troponin T < 0.010 ng/mL (0.00-0.029) 10/24/16 19:54
[2016-10-28] MEDS ORDERED: DUONEB 0.5 MG-3 MG/3 ML SOLN IH SCH (16:00)
[2016-10-28] MEDS ORDERED: NOVOLOG SUB-Q SCH (16:30)
[2016-10-28 16:35] VITALS: BP 110/59
[2016-10-28] MEDS: LEVAQUIN PO SCH (17:16)
--- NOTE | 2016-10-28 17:28 | Discharge Summary ---
Providers - Providers Date of Admission: 10/25/16 00:10 Date of discharge: 10/28/16 Attending physician: ANKIT MADISON Primary care physician: TREVOR PABON MD Hospitalization Condition: Stable Hospital course: Patient is a 65-year-old man with past medical history significant for diabetes mellitus type 2, asthma and hyperlipidemia who presented to the emergency department complaining of shortness of breath for the last 4-5 days, associated cough. BG was 617 on admission Acute asthmatic exacerbation - Oxygen support, DuoNeb's, breathing treatment - stop steroid due to high BG - cont abx Uncontrolled diabetes mellitus type 2 with Hyperglycemia - increase metformin and because it is not working - Start 70/30 due to cost and no insurance, cont sliding scale insulin - cont IVF Mild hyponatremia likley due to dehydration, resolved with IV fluid Prophylaxis - lovenox DisPosition - home when blood sugar is stable Disposition: DISCHARGED TO HOME OR SELFCARE Time spent for discharge: 33 minutes Core Measure Documentation - Palliative Care Palliative Care/ Comfort Measures: Not Applicable - Core Measures Any of the following diagnoses?: none - VTE Discharge Requirements Deep Vein Thrombosis/Pulmonary Embolism Present on Admission: No Has pt received <5 days of overlap therapy or INR<2.0: No Anticoagulant overlap therapy prescribed at discharge: No Contraindication No Overlap Therapy order at DC: Not Indicated Exam - Physical Exam Narrative exam: GEN: WDWN, NAD, AWAKE, ALERT, ORIENTATED 3 HEENT: NCAT, PERRL, EOMI, OP CLEAR NECK: SUPPLE, NO THYROMEGALY, NO JVD, NO LAD CVS: RRR, NORMAL S1S2 LUNGS/CHEST: Discharge wheezing, NORMAL CHEST EXPANSION B, GOOD AIR ENTRY B ABD: SOFT NTND, GBS, NO REBOUND OR GUARDING EXT/SKIN: NO SIGNIFICANT EDEMA OR RASH MSK: FROM X 4 EXTREMITIES NEURO: CN 2-12 GROSSLY INTACT, NO new FOCAL DEFICITS PSY: CALM - Constitutional Vitals: Temp Pulse Resp BP Pulse Ox 97.8 F 72 18 110/59 100 10/28/16 16:00 10/28/16 16:00 10/28/16 16:00 10/28/16 16:00 10/28/16 16:00 Plan Activity: advance as tolerated (no strenous activites until cleared by PCP. ) Diet: diabetic Special Instructions: record blood sugar diary Follow up with: PRIMARY CAREMD [Primary Care Provider] - 3-5 Days Prescriptions: ALBUTEROL Inhaler [ProAir HFA Inhaler] 2 puff INHALATION Q4H PRN #1 inha PRN Reason: Dyspnea Budesoni/Formoterol 80-4.5(Nf) [Symbicort 80-4.5 (Nf)] 1 gm INHALATION BID #1 inha Insulin Detemir [Levemir] 10 units SUB-Q BID 30 Days Levofloxacin [Levaquin TAB] 750 mg PO Q24H #5 day Lisinopril [Zestril TAB] 10 mg PO DAILY #30 tablet metFORMIN [Glucophage] 1,000 mg PO BID #120 tablet methylPREDNISolone [Medrol Dose Lizandro] 4 mg PO DAILY #1 tab.ds.pk Ipratropium/Albuterol Sulfate [Duoneb 0.5 mg-3 mg/3 ml Soln] 1 ampul IH QIDRT # 30 ampul.neb
== END 2016-10-28 18:56 | disposition home or self-care (01) | DRG 202 ==
LOC: ED 17:48 → 3A 10-25 00:10
PROVIDERS: ADMIT Internal Medicine; ATTEND Internal Medicine
DX: J45.901 Unspecified asthma with (acute) exacerbation (principal); E87.1 Hypo-osmolality and hyponatremia; E78.5 Hyperlipidemia, unspecified; Z82.5 Family history of asthma and other chronic lower respiratory diseases; Z88.8 Allergy status to other drugs, medicaments and biological substances; Z91.19 Patient's noncompliance with other medical treatment and regimen; E11.65 Type 2 diabetes mellitus with hyperglycemia; I10 Essential (primary) hypertension; E86.0 Dehydration; Z71.51 Drug abuse counseling and surveillance of drug abuser
CPT/HCPCS: 36415; 71020; 80048; 82805; 82962; 83036; 84484; 85025; 85379; 93005; 93010; 94640; 94760; 96365; 96375; 96376; J1650; J1815; J1818; J3475; J7030; J7512